=== PATIENT | male | born 1945 | race Caucasian/White ===

== ENCOUNTER 2021-10-03 20:09 | Emergency (ER) | payer MEDICARE ==
[~2021-10-03] VITALS: Ht 177.8 cm; Wt 91.0 kg
[2021-10-03] MEDS ORDERED: SODIUM CHLORIDE 0.9% 1,000 ML IV ONE (20:30)
[2021-10-03 20:45] LABS: CHLORIDE 106 mEq/L (98-107)
[2021-10-03 20:53] LABS: BASOPHILS % 0.5 % (0.0-2.0); EOSINOPHILS % 1.5 % (0.0-5.0); HEMATOCRIT. 39.1 % (42.0-52.0); HEMOGLOBIN. 12.9 g/dL (14.0-18.0); LYMPHOCYTES % 25.9 % (20.0-50.0); MEAN CORPUSCULAR HEMOGLOBIN 27.7 pg (28.0-32.0); MEAN CORPUSCULAR VOLUME 84.3 fL (80.0-94.0); MEAN PLATELET VOLUME 8.1 fl (7.4-10.4); MONOCYTES % 8.1 % (2.0-8.0); PLATELET 309 x1000/uL (130-400); RED BLOOD CELL COUNT 4.64 mill/uL (4.7-6.1)
[2021-10-04 00:54] VITALS: BP 135/76
== END 2021-10-04 00:55 | disposition home or self-care (01) ==
LOC: ER 20:09
DX: I95.1 Orthostatic hypotension (principal); I10 Essential (primary) hypertension; E11.9 Type 2 diabetes mellitus without complications; Z87.891 Personal history of nicotine dependence
CPT/HCPCS: 36415; 70450; 80053; 83880; 84484; 85025; 93005; 96360; 96361; 99285; J7030